=== PATIENT | female | born 1985 | race Two or more races ===

== ENCOUNTER → 2020-04-21 | Outpatient (CLI) | payer OTHER | END | disposition home or self-care (01) | LOC: PRENATAL 13:53 | PROVIDERS: ATTEND Obstetrics & Gynecology Maternal & Fetal Medicine | DX: O35.3XX1 Maternal care for (suspected) damage to fetus from viral disease in mother, fetus 1 (principal); O35.0XX1 Maternal care for (suspected) central nervous system malformation in fetus, fetus 1; O26.852 Spotting complicating pregnancy, second trimester; O98.512 Other viral diseases complicating pregnancy, second trimester; O09.512 Supervision of elderly primigravida, second trimester; O99.212 Obesity complicating pregnancy, second trimester; Z36.89 Encounter for other specified antenatal screening; Z3A.20 20 weeks gestation of pregnancy ==

== ENCOUNTER → 2020-06-02 | Outpatient (CLI) | payer OTHER | END | disposition home or self-care (01) | LOC: PRENATAL 13:00 | PROVIDERS: ATTEND Obstetrics & Gynecology Maternal & Fetal Medicine | DX: O26.842 Uterine size-date discrepancy, second trimester (principal); O98.512 Other viral diseases complicating pregnancy, second trimester; O09.512 Supervision of elderly primigravida, second trimester; Z36.89 Encounter for other specified antenatal screening; Z3A.26 26 weeks gestation of pregnancy ==

== ENCOUNTER 2020-08-20 15:00 | Inpatient (IN) | payer OTHER ==
[~2020-08-20] VITALS: Ht 165.1 cm; Wt 97.1 kg
[2020-09-08] MEDS ORDERED: FOLIC ACID0.8 M1 PO (10:47)
[2020-09-08] MEDS ORDERED: PRENATAL CAPLE1 EAC1 PO (10:47)
[2020-09-08] MEDS ORDERED: HYDROXYZINE PAM25 MG (11:31)
== END 2020-09-11 19:10 | disposition home or self-care (01) | DRG 788 ==
LOC: LDR 09-08 06:43 → OB/GYN 09-08 06:43 → LDR 09-08 15:00 → O/R 09-08 19:02 → OB/GYN 09-08 21:47
PROVIDERS: ADMIT Obstetrics & Gynecology; ATTEND Obstetrics & Gynecology
PROC: 3E0P7VZ Introduction of Hormone into Female Reproductive, Via Natural or Artificial Opening (ICD-10-PCS; 2020-09-08)
PROC: 4A1HXFZ Monitoring of Products of Conception, Cardiac Rhythm, External Approach (ICD-10-PCS; 2020-09-08)
PROC: 10D00Z1 Extraction of Products of Conception, Low, Open Approach (ICD-10-PCS; principal; 2020-09-08 16:00)
DX: O62.1 Secondary uterine inertia (principal); O65.9 Obstructed labor due to maternal pelvic abnormality, unspecified; O48.0 Post-term pregnancy; Z37.0 Single live birth; Z3A.40 40 weeks gestation of pregnancy; Z20.822 Contact with and (suspected) exposure to COVID-19

== ENCOUNTER 2022-08-03 11:49 | Inpatient (IN) | payer OTHER ==
[~2022-08-03] VITALS: Ht 165.1 cm; Wt 89.4 kg
[~2022-08-03 11:49] MED LIST: FOLIC ACID0.8 M1 PO; HYDROXYZINE PAM25 MG; PRENATAL CAPLE1 EAC1 PO
[2022-08-03] MEDS ORDERED: CLOMIPHENE CITR50 MG (12:28)
--- NOTE | 2022-08-03 12:29 | NUR ---
PACIENTE ALERTA Y ORIENTADA POR 3 ESFERAS REFIERE PRESENTAR ABCESO EN LA [place] Y TONI DOLOR ABDOMINAL HACE 7 LIRA. SE MIDEN S/V. SE UBICA PACIENTE EN AREA DE OBSERVACION.
--- NOTE | 2022-08-03 14:02 | NUR ---
SE LE ORIENTA A PTE SOBRE TRATAMIENTO E INSTRUCCIONES A SEGUIR, ALMA REFIERE ENTENDER. SE LE COLECTA MUESTRAS ASHLEY ORDEN MEDICA. PENDIENTE ADMINISTRAR MEDICAMENTO YA QUE NO ESTA DISPONIBLE EN LA [facility]
== END 2022-08-04 12:43 | disposition left against medical advice (07) | DRG 446 ==
LOC: ER 11:49 → MEDI 17:56
PROVIDERS: ADMIT Internal Medicine; ATTEND Internal Medicine
PROC: BW40ZZZ Ultrasonography of Abdomen (ICD-10-PCS; principal; 2022-08-03)
PROC: BW21ZZZ Computerized Tomography (CT Scan) of Abdomen and Pelvis (ICD-10-PCS; 2022-08-03)
DX: K80.20 Calculus of gallbladder without cholecystitis without obstruction (principal); Z20.822 Contact with and (suspected) exposure to COVID-19

== ENCOUNTER 2022-08-04 13:19 | Inpatient (IN) | payer OTHER ==
[~2022-08-04] VITALS: Ht 165.1 cm; Wt 89.4 kg
[~2022-08-04 13:19] MED LIST changes: +CLOMIPHENE CITR50 MG
== END 2022-08-09 15:05 | disposition home or self-care (01) | DRG 419 ==
LOC: MEDI 13:19
PROVIDERS: Specialist; ADMIT Internal Medicine; ATTEND Internal Medicine
PROC: BF5 Imaging, Hepatobiliary System and Pancreas, Other Imaging (ICD-10-PCS; 2022-08-08)
PROC: 0FT44ZZ Resection of Gallbladder, Percutaneous Endoscopic Approach (ICD-10-PCS; principal; 2022-08-08 08:00)
DX: K80.10 Calculus of gallbladder with chronic cholecystitis without obstruction (principal); R10.11 Right upper quadrant pain; Z20.822 Contact with and (suspected) exposure to COVID-19